=== PATIENT | male | born 1975 | race Caucasian/White ===

== ENCOUNTER 2021-05-31 11:06 | Day surgery (SDC) | payer SELFPAY ==
[~2021-05-31] VITALS: Ht 193 cm; Wt 140.0 kg
[2021-05-31] VITALS (7 sets, daily range): BP systolic 131–168; BP diastolic 74–103; PULSE 73–77; TEMP 98.2–99
--- NOTE | 2021-05-31 12:00 | NUR ---
Repeat blood pressure 161/94.
--- NOTE | 2021-05-31 15:05 | NUR ---
Patient returns to room 5 per cart from PACU accompanied by Heide RN and is awake and alert. IV fluids infusing and site is free of redness. Scrotal support with 4x4's in place and dry. Temp 99.1. Siderails up x2 and call light in reach.
--- NOTE | 2021-05-31 15:20 | NUR ---
Resting and taking ice chips and water. Talking with spouse and taking ice chips.
--- NOTE | 2021-05-31 15:35 | NUR ---
Resting and talking with spouse.
--- NOTE | 2021-05-31 15:47 | NUR ---
Roxicodone 10mg po for pain at 5/10. Eating toast and pudding. Also sipping on orange juice.
--- NOTE | 2021-05-31 15:50 | NUR ---
Tolerated snack well and denies nausea.
--- NOTE | 2021-05-31 15:50 | NUR ---
Resting and denies increasing pain.
--- NOTE | 2021-05-31 16:40 | NUR ---
IV to INT and assisted up to the bathroom. Able to void and returns to room. INT discontinued and site is free of redness. Patient dresses self. Spouse in room.
--- NOTE | 2021-05-31 16:46 | NUR ---
Patient was given dismissal instructions and voices understanding of home cares and follow up. Patient dismissed to home driven by spouse and taken to the front door per wheelchair and assisted into vehicle with instructions in hand.
== END 2021-05-31 16:46 | disposition home or self-care (01) ==
LOC: SDCO 11:06
DX: N43.3 Hydrocele, unspecified (principal); G47.33 Obstructive sleep apnea (adult) (pediatric); I10 Essential (primary) hypertension; Z86.16 Personal history of COVID-19; Z79.899 Other long term (current) drug therapy
CPT/HCPCS: J0690; J1100; J1170; J1885; J2405; J2704; J3010; J7120